=== PATIENT | female | born 1955 | race Caucasian/White ===

== ENCOUNTER → 2018-11-12 | Outpatient (CLI) | payer MEDICARE, OTHER ==
[~2018-11-12] MED LIST: ACHD5005 PO; ACHYD1T PO; ASCO-262 PO; ASP325T PO; BPR150TCR PO; CHOL10003 PO; CLIN-62 PO; CPR500T PO; CYAN10007 PO; DEXL60CA5 PO; DULO30CA3 PO; ERTAPENEM; ERTAPENEM IV; FERR240T9 PO; FERR256T PO; GBPN600T PO; HOLD METFORMIN - RECEIVED CONTRAST 20 ML VIAL IV SCH; HYDR-3729 PO; INSR1U SC; LEVO175T2 PO; LNZ600T PO; MPR22TI TOP; OMEP20CA12 PO; OMG1KC PO; OXYC-12 PO; POTA10CA43 PO; PREG100C22 PO; PREG75CA PO; PRM25T IV; PROM12.59 IV; TYGACIL IV; VITA100T6 PO; [UNRECOGNIZED DRUG - CODE] IV
[2018-11-12 11:04] LABS: BUN/CREATININE RATIO 18; CREATININE SERUM 0.74 MG/DL (0.60-1.30); GFR ESTIMATED > 60
[2018-11-12] MEDS: IOHEXOL 350 MG/ML 100 ML (OMNIPAQUE 350) VIAL IV ONE (11:29)
[2018-11-12] MEDS: NS 100 ML (IVPB) BAG IV ONE (11:30)
--- NOTE | 2018-11-12 12:47 | Diagnostic Imaging Report ---
CLINICAL INDICATION: Patient with difficulty swallowing x6 months. Enlarged parotid glands. EXAM: Axial CT scan of the neck soft tissue performed with 75 cc of Omnipaque 350 IV contrast. Coronal and sagittal reformatted images are created. COMPARISON: None. FINDINGS: There is mild prominence of the nasopharynx and oropharynx with no significant encroachment upon the airway. There is asymmetry of the aryepiglottic fold region with the left side more prominent than the right, which is nonspecific. The glottis is closed and may be related to positioning. There is enlargement of the bilateral parotid glands with multinodular appearance of fatty infiltration. There are multiple nodular areas in the parotid gland regions, which appear to have central low density within them. The largest one measures 11 mm x 8 mm in the medial aspect of the superficial portion of the left parotid gland. There is a 14 mm x 9 mm lobulated area involving the posterior aspect of left parotid gland. There are smaller nodular areas in the right parotid gland. There is also atrophy and fatty replacement of the bilateral submandibular glands. There are multiple lymph nodes on both sides of the neck. The largest measurable lymph node is 17 mm x 12 mm in the right level IIA region. The thyroid gland is unremarkable. The visualized neck vascular structures are unremarkable. There are prominent retromaxillary venous structures noted in the bilateral parotid glands and sides of the neck. There are emphysematous changes of the upper lung williamson. There are cervical spine vertebral body spurs. There are small mucus retention cysts in both maxillary sinuses. Temporal bone structures show no significant abnormality. IMPRESSION: 1: There is enlargement, multinodular, and fatty infiltration appearance of the bilateral parotid glands. The nodular areas within the parotid gland are concerning for parotid parenchyma and/or superimposed cysts with or without superimposed salivary gland tumors. The background appearance of the parotid glands may be related to chronic sialadenitis. The largest nodular lesion in the left parotid gland region measures 14 mm x 9 mm and may represent a parotid gland tumor versus lymph node. The nodular areas in the bilateral parotid glands may represent lymph nodes versus Warthin's tumors versus primary salivary gland neoplasms. If the patient has history of an immunocompromised state, then lymphoepithelial lesions may be considered. 2: Nonspecific cervical lymphadenopathy. 3: Mild asymmetry of the aryepiglottic folds with the left side more prominent than the right, which is nonspecific. There is no measurable mass seen in the region. Dictated by: Dictated on workstation # [id number]
--- NOTE | 2018-11-12 18:54 | Diagnostic Imaging Report ---
INDICATION: Dysphagia. EXAMINATION: The patient ingested effervescent crystals as well as thin and thick barium and imaging of the esophagus was performed. A total of 1 minute and 21 seconds of fluoroscopy was utilized. FINDINGS: The esophagus has a smooth contour. No mass or stricture is identified. No gastroesophageal reflux is demonstrated. There is a small hiatal hernia. IMPRESSION: Small hiatal hernia. The study is otherwise unremarkable. Dictated by: Dictated on workstation # [id number]
== END ==
LOC: RAD 10:31
PROVIDERS: ATTEND Otolaryngology Otolaryngology/Facial Plastic Surgery
DX: K44.9 Diaphragmatic hernia without obstruction or gangrene (principal); K11.1 Hypertrophy of salivary gland
CPT/HCPCS: 36415; 70491; 74220; 82565; 84520

== ENCOUNTER → 2019-01-21 | Outpatient (CLI) | payer MEDICARE, OTHER ==
[~2019-01-21] MED LIST changes: -HOLD METFORMIN - RECEIVED CONTRAST 20 ML VIAL IV SCH
--- NOTE | 2019-01-21 10:41 | NUR ---
This RN not present during procedure. Witnessed consent signing prior to procedure and discharge instructions provided to patient.
--- NOTE | 2019-01-21 11:52 | Diagnostic Imaging Report ---
Indication: Left parotid lymph node enlargement. Sonographic guidance was provided for Dr. Alvarez for left parotid lymph node biopsy. A total of 3 passes were made into the left parotid lymph node. Impression: Sonographic guidance for left parotid lymph node FNA. Dictated by: Dictated on workstation # [id number]
== END ==
LOC: RAD 10:24
PROVIDERS: ATTEND Otolaryngology Otolaryngology/Facial Plastic Surgery
DX: R59.0 Localized enlarged lymph nodes (principal)
CPT/HCPCS: 76942

== ENCOUNTER 2019-01-23 19:01 | Emergency (ER) | payer MEDICARE, OTHER ==
[~2019-01-23] VITALS: Ht 180.3 cm; Wt 113.4 kg
--- NOTE | 2019-01-23 19:38 | ED Head Injury ---
General Chief Complaint: Facial Problems Stated Complaint: FACIAL INJ Nursing Triage Note: pt hit self in fece with deck leg Source: patient Exam Limitations: no limitations History of Present Illness Date Seen by Provider: January 23, 2019 Time Seen by Provider: 19:20 Initial Comments The patient presents to ER by private conveyance with chief complaint of 40 minutes prior to arrival she was at her house in her wheelchair in the yard trying to place a pallet that had for 2 x 4 smell to it to make a table up onto her deck. As she did this one of the legs became stuck and she pulled on it hard and when it sprung out apparently the 2 x 4 struck her in the left side of her face. She has quite a bit of swelling and pain. She denies loss of consciousness nor did she fall out of her wheelchair. She is on aspirin but no other blood thinner. She denies being assaulted or feeling unsafe. There were no witnesses but she did call her son and he came over and helped her come to the ER. Allergies and Home Medications Allergies Coded Allergies: Sulfamethoxazole (Unverified Allergy, Mild, HIVES, 03/31/13) doxycycline (Unverified Allergy, Mild, HIVES, 03/31/13) trimethoprim (Unverified Allergy, Mild, HIVES, 03/31/13) vancomycin (Unverified Allergy, Mild, HIVES, 03/31/13) Home Medications Ascorbate Calcium 500 Mg Tablet, 500 MG PO DAILY, (Reported) Aspirin 325 Mg Tab, 325 MG PO DAILY Prescribed by: LANA SAMPSON on 08/23/13 1120 Bupropion Hcl 150 Mg Tabcr, 150 MG PO HS, (Reported) Cholecalciferol 1,000 Unit Tablet, 1,000 UNIT PO DAILY, (Reported) Clindamycin Hcl 150 Mg Cap, 1 EACH PO Q6HR Prescribed by: ALFREDO DENNISON on 05/22/14 1137 Cyanocobalamin 1,000 Mcg Tablet.sa, 1,000 MCG PO DAILY, (Reported) Dexlansoprazole 60 Mg Adi., 60 MG PO DAILY, (Reported) Duloxetine Hcl 30 Mg Cap, 30 MG PO DAILY, (Reported) Ferrous Gluconate 1 Tab Tablet, 65 MG PO DAILY, (Reported) Hydrocodone/Acetaminophen 1 Each Tablet, 1-2 EACH PO Q4H PRN for PAIN Prescribed by: ALFREDO DENNISON on 05/22/14 1137 Levothyroxine Sodium 175 Mcg Tablet, 175 MCG PO DAILY, (Reported) [place] 3 Polyunsat Fatty Acids 1,000 Mg Cap, 1,000 MG PO DAILY, (Reported) Potassium Chloride 10 Meq Capsule.sa, 10 MEQ PO DAILY, (Reported) Pregabalin 75 Mg Capsule, 75 MG PO BID, (Reported) Vitamin E Acid Succinate 100 Unit Tablet, 100 UNIT PO DAILY, (Reported) Patient Home Medication List Home Medication List Reviewed: Yes Review of Systems Review of Systems Constitutional: No chills, No diaphoresis Eyes: Denies Blindness, Denies Blurred Vision Ears, Nose, Mouth, Throat: denies ear pain, denies ear discharge Respiratory: No cough, No hemoptysis Cardiovascular: No chest pain, No palpitations Gastrointestinal: No abdominal pain, No nausea Past Sgfwyty-Aaefwf-Qggoiu Hx Patient Social History Alcohol Use: Denies Use Recreational Drug Use: No Smoking Status: Never a Smoker Recent Foreign Travel: No Contact w/Someone Who Travel: No Recent Infectious Disease Expo: No Immunizations Up To Date Tetanus Booster (TDap): More than 5yrs PED Vaccines UTD: Yes Date of Influenza Vaccine: Jun 02, 2013 Past Medical History Surgeries: Yes (BONE REMOVAL IN LEFT FOOT, right leg amputation, several I&D's prior to amp) Respiratory: Yes (sjogren syndrome) Cardiac: No Neurological: No Reproductive Disorders: No Gastrointestinal: Yes (constipation) Gastroesophageal Reflux Musculoskeletal: Yes Amputee, Fibromyalgia Endocrine: Yes Hypothyroidsim Cancer: No Psychosocial: No Integumentary: Yes Recent Skin Changes Blood Disorders: Yes Adverse Reaction/Blood Tranf: No Physical Exam Vital Signs Vital Signs - First Documented 01/23/19 19:23 Temp 98.5 Pulse 94 Resp 20 B/P (MAP) 154/101 (118) Pulse Ox 92 O2 Delivery Room Air Capillary Refill : Less Than 3 Seconds Height, Weight, BMI Height: 5'11.00" Weight: 250lbs. oz. 113.695709fh; BMI Method:Estimated General Appearance: WD/WN, no apparent distress HEENT: PERRL/EOMI, normal ENT inspection, TMs normal, pharynx normal, other (modest size 2-3 cm diameter hematoma over the left zygomatic arch. Negative for hemotympanum, varela sign or right sided raccoon eye.) Neck: non-tender, full range of motion, supple, normal inspection Cardiovascular: normal peripheral pulses, regular rate, rhythm Respiratory: lungs clear, normal breath sounds, no respiratory distress, no accessory muscle use Gastrointestinal: normal bowel sounds, non tender, soft Progress/Results/Core Measures Results/Orders My Orders Orders - OLLIE CUTLER Ct Head/Face/Cervical Wo (01/23/19 19:38) Vital Signs/I&O 01/23/19 19:23 Temp 98.5 Pulse 94 Resp 20 B/P (MAP) 154/101 (118) Pulse Ox 92 O2 Delivery Room Air Blood Pressure Mean: 118 Progress Progress Note : Time: 19:[address] of the head, maxillofacial, cervical spine noncontrast. Ice pack. She has declined anything for pain. Diagnostic Imaging Diagonstic Imaging: CT (noncontrast) Plain Films/CT/US/NM/MRI: c-spine, head (face) Comments [facility], [place] NAME: CEHRIE REIS [facility] REC#: [id number] PT STATUS: REG ER : 1955 PHYSICIAN: OLLIE CUTLER MD ADMIT DATE: 01/23/19/ER FS Draft Date of Exam:01/23/19 CT HEAD/FACE/CERVICAL WO PROCEDURE: CT head, face, and cervical spine without contrast. TECHNIQUE: Multiple contiguous axial images were obtained through the head, neck, and facial bones without the use of intravenous contrast. Sagittal and coronal reformations through the cervical spine and facial bones were also performed. Auto Exposure Controls were utilized during the CT exam to meet ALARA standards for radiation dose reduction. INDICATION: Head and face trauma. FINDINGS: The ventricles and sulci are within normal limits. There is no hydrocephalus. There is no midline shift. There is no intracranial mass, hemorrhage, or extra-axial fluid collection. The calvarium is intact. The nasal bones are intact. Zygomatic arches are intact. The mandibular condyles are well aligned. The mandible is intact. Pterygoid plates are intact. The frontal, ethmoid, and sphenoid sinuses are clear. There are small mucous retention cysts and/or polyps in the maxillary sinuses bilaterally. The mastoid air cells are clear. The alignment of the cervical spine is normal. The vertebral body heights are well-maintained. There is no fracture or traumatic subluxation. The odontoid is intact and the lateral masses are well aligned. There is some posterior facet arthropathy. There is some interstitial scarring in the lung apices. The prevertebral soft tissues are within normal limits. IMPRESSION: No acute intracranial abnormality No displaced facial bone fractures. There are mucous retention cysts or polyps in the maxillary sinuses bilaterally. Mild cervical spondylosis without acute fracture or traumatic subluxation. Dictated on workstation # [id number] Dict: 01/23/192015 Trans: 01/23/192021 [facility] [id number] Interpreted by: CARLTON ESCOBAR MD Electronically signed by: Reviewed: Reviewed by Me Departure Impression Primary Impression: Contusion of scalp, face, or neck, excluding eyes Additional Impression: Concussion Qualified Codes: S06.0X0A - Concussion without loss of consciousness, initial encounter Disposition: 01 HOME, SELF-CARE Condition: Stable Departure-Patient Inst. Decision time for Depature: 20:46 Referrals: YANA LEON MD (PCP/Family) Primary Care Physician Patient Instructions: Concussion, Adult (DC) Add. Discharge Instructions: Keep an ice pack every 2-4 hours on your left side your face as necessary for swelling or pain. Use Tylenol thousand milligrams and ibuprofen 800 mg every 8 hours each as necessary for pain. If you have any signs of a concussion such as headache, nausea, feeling off balance or other concerns then you should go get some sleep. If your symptoms persist you can follow-up with primary care for management of your concussion. All discharge instructions reviewed with patient and/or family. Voiced understanding. OLLIE CUTLER January 23, 2019 19:38
--- NOTE | 2019-01-23 20:23 | Diagnostic Imaging Report ---
PROCEDURE: CT head, face, and cervical spine without contrast. TECHNIQUE: Multiple contiguous axial images were obtained through the head, neck, and facial bones without the use of intravenous contrast. Sagittal and coronal reformations through the cervical spine and facial bones were also performed. Auto Exposure Controls were utilized during the CT exam to meet ALARA standards for radiation dose reduction. INDICATION: Head and face trauma. FINDINGS: The ventricles and sulci are within normal limits. There is no hydrocephalus. There is no midline shift. There is no intracranial mass, hemorrhage, or extra-axial fluid collection. The calvarium is intact. The nasal bones are intact. Zygomatic arches are intact. The mandibular condyles are well aligned. The mandible is intact. Pterygoid plates are intact. The frontal, ethmoid, and sphenoid sinuses are clear. There are small mucous retention cysts and/or polyps in the maxillary sinuses bilaterally. The mastoid air cells are clear. The alignment of the cervical spine is normal. The vertebral body heights are well-maintained. There is no fracture or traumatic subluxation. The odontoid is intact and the lateral masses are well aligned. There is some posterior facet arthropathy. There is some interstitial scarring in the lung apices. The prevertebral soft tissues are within normal limits. IMPRESSION: No acute intracranial abnormality No displaced facial bone fractures. There are mucous retention cysts or polyps in the maxillary sinuses bilaterally. Mild cervical spondylosis without acute fracture or traumatic subluxation. Dictated by: Dictated on workstation # [id number]
--- NOTE | 2019-01-23 20:46 | NUR ---
pt sitting on side of bed. denies concerns at this time. ice bag to face.
[2019-01-23 20:56] VITALS: BP 149/96
== END 2019-01-23 21:00 | disposition home or self-care (01) ==
LOC: EDUNIT# 19:01 → ER FS 19:03
DX: S06.0X0A Concussion without loss of consciousness, initial encounter (principal); S00.03XA Contusion of scalp, initial encounter; M35.00 Sjogren syndrome, unspecified; K21.9 Gastro-esophageal reflux disease without esophagitis; E03.9 Hypothyroidism, unspecified; M79.7 Fibromyalgia; Z98.890 Other specified postprocedural states; Z87.19 Personal history of other diseases of the digestive system; Z88.1 Allergy status to other antibiotic agents; Z88.2 Allergy status to sulfonamides; Z88.8 Allergy status to other drugs, medicaments and biological substances; Z79.82 Long term (current) use of aspirin; Z89.611 Acquired absence of right leg above knee; W22.09XA Striking against other stationary object, initial encounter; Y92.007 Garden or yard of unspecified non-institutional (private) residence as the place of occurrence of the external cause
CPT/HCPCS: 70450; 70486; 72125

== ENCOUNTER 2019-02-01 17:41 | Emergency (ER) | payer MEDICARE, OTHER ==
[~2019-02-01] VITALS: Ht 180.3 cm; Wt 104.3 kg
--- NOTE | 2019-02-01 18:19 | ED Lower Extremity ---
General Chief Complaint: Lower Extremity Stated Complaint: LT FOOT LAC Source: patient, RN notes reviewed Exam Limitations: no limitations History of Present Illness Date Seen by Provider: Feb 01, 2019 Time Seen by Provider: 18:10 Initial Comments Patient presents c/ c/o laceration to her left 4th toe. Not sure how she did it. Has diabetic neuropathy and little to no feeling in her foot. Tetanus status unknown. Onset: just prior to arrival Pain/Injury Location: left 4th toe (laceration) Method of Injury: unknown Modifying Factors: Improves With Other (none) Allergies and Home Medications Allergies Coded Allergies: doxycycline (Unverified Allergy, Mild, HIVES, 03/31/13) sulfamethoxazole (Unverified Allergy, Mild, HIVES, 03/31/13) trimethoprim (Unverified Allergy, Mild, HIVES, 03/31/13) vancomycin (Unverified Allergy, Mild, HIVES, 03/31/13) dextrose 5 % in water (Unverified Adverse Reaction, Unknown, 02/01/19) linezolid (Unverified Adverse Reaction, Unknown, 02/01/19) Home Medications Ascorbate Calcium 500 Mg Tablet, 500 MG PO DAILY, (Reported) Aspirin 325 Mg Tab, 325 MG PO DAILY Prescribed by: LANA SAMPSON on 08/23/13 1120 Bupropion Hcl 150 Mg Tabcr, 150 MG PO HS, (Reported) Cephalexin 500 Mg Tablet, 1,000 MG PO BID Prescribed by: ALANNA BECKMAN on 02/01/19 1845 Cholecalciferol 1,000 Unit Tablet, 1,000 UNIT PO DAILY, (Reported) Clindamycin Hcl 150 Mg Cap, 1 EACH PO Q6HR Prescribed by: ALFREDO DENNISON on 05/22/14 1137 Cyanocobalamin 1,000 Mcg Tablet.sa, 1,000 MCG PO DAILY, (Reported) Dexlansoprazole 60 Mg Adi., 60 MG PO DAILY, (Reported) Duloxetine Hcl 30 Mg Cap, 30 MG PO DAILY, (Reported) Ferrous Gluconate 1 Tab Tablet, 65 MG PO DAILY, (Reported) Hydrocodone/Acetaminophen 1 Each Tablet, 1-2 EACH PO Q4H PRN for PAIN Prescribed by: ALFREDO DENNISON on 05/22/14 1137 Levothyroxine Sodium 175 Mcg Tablet, 175 MCG PO DAILY, (Reported) [place] 3 Polyunsat Fatty Acids 1,000 Mg Cap, 1,000 MG PO DAILY, (Reported) Potassium Chloride 10 Meq Capsule.sa, 10 MEQ PO DAILY, (Reported) Pregabalin 75 Mg Capsule, 75 MG PO BID, (Reported) Vitamin E Acid Succinate 100 Unit Tablet, 100 UNIT PO DAILY, (Reported) Patient Home Medication List Home Medication List Reviewed: Yes Review of Systems Constitutional: see HPI : No Skin: see HPI, other (laceration left 4th toe) All Other Systems Reviewed Negative Unless Noted: Yes (Negative excepted noted.) Past Cxpspls-Rodmvg-Jerwie Hx Patient Social History Recent Foreign Travel: No Contact w/Someone Who Travel: No Immunizations Up To Date Tetanus Booster (TDap): More than 5yrs PED Vaccines UTD: Yes Date of Influenza Vaccine: Jun 02, 2013 Past Medical History Surgeries: Yes (BONE REMOVAL IN LEFT FOOT, right leg amputation, several I&D's prior to amp) Respiratory: Yes (sjogren syndrome) Cardiac: No Neurological: No Reproductive Disorders: No Gastrointestinal: Yes (constipation) Gastroesophageal Reflux Musculoskeletal: Yes Amputee, Fibromyalgia Endocrine: Yes Hypothyroidsim Cancer: No Psychosocial: No Integumentary: Yes Recent Skin Changes Blood Disorders: Yes Adverse Reaction/Blood Tranf: No Physical Exam Vital Signs Capillary Refill : Height, Weight, BMI Height: 5'11.00" Weight: 250lbs. oz. 113.214863ss; BMI Method:Estimated General Appearance: no apparent distress, obese Respiratory: no respiratory distress Feet: left foot abrasions/lacerations (4th toe, plantar surface. 2 cm linear, subq. Bleeding controlled. ) Neurologic/Tendon: normal motor functions, normal tendon functions, sensory deficit Neurologic/Psychiatric: alert, normal mood/affect, oriented x 3 Skin: warm/dry, other (see above under feet regarding her left 4th toe laceration.) Procedures/Interventions Wound Location: Lower Extremities (Left 4th toe) Wound Length (cm): 2 Wound's Depth, Shape: linear, sub Q Wound Explored: clean Betadine Prep?: No (Hibiclens) Suture: Ethlion Suture Size: 4-0 Number of Sutures: 4 Sterile Dressing Applied?: Yes Progress/Results/Core Measures Results/Orders My Orders Orders - ALANNA BECKMAN DO DiphtJose(Acell),Tet Adult (Boostrix (02/01/19 18:30) Wound Dressing-Ed (02/01/19 18:42) Cephalexin Capsule (Keflex Capsule) (02/01/19 18:45) Medications Given in ED Current Medications Medications Dose Ordered Sig/Romario Route Start Time Stop Time Status Last Admin Dose Admin Cephalexin HCl 1,000 mg ONCE ONCE PO 02/01/19 18:45 02/01/19 18:46 UNV 02/01/19 18:46 1,000 MG Diphtheria/ Tetanus/Acell Pertussis 0.5 ml ONCE ONCE IM 02/01/19 18:30 02/01/19 18:31 DC 02/01/19 18:42 0.5 ML Departure Impression Primary Impression: Laceration of toe of left foot Disposition: HOME, SELF-CARE Condition: Improved Departure-Patient Inst. Referrals: YANA LEON MD (PCP/Family) Primary Care Physician Patient Instructions: Laceration Repair With Stitches (DC) Add. Discharge Instructions: All discharge instructions reviewed with patient and/or family. Voiced understanding. RETURN IN 10 DAYS TO HAVE YOUR STITCHES REMOVED. RETURN SOONER IF ANY QUESTIONS, &/OR CONCERNS. Scripts Cephalexin (Cephalexin) 500 Mg Tablet 1000 MG PO BID for 7 Days, #2028 TAB 0 Refills Prov: ALANNA BECKMAN DO 02/01/19 ALANNA BECKMAN DO Feb 01, 2019 18:19
[2019-02-01] MEDS ORDERED: TETANUS,DIPTH,PERTUSS P/F (BOOSTRIX) 0.5 ML VIAL IM ONE (18:30)
[2019-02-01] MEDS ORDERED: CEPHALEXIN 250 MG (KEFLEX) CAP PO ONE ×2 (18:42→18:45)
[2019-02-01] MEDS ORDERED: CEPH500T PO (18:45)
[2019-02-01 19:10] VITALS: BP 163/93
--- NOTE | 2019-02-01 19:10 | NUR ---
AFTER COMPLETION OF DR SUTURING THE PT'S AUNT BEGAN COMPLAINING ABOUT DR'S SUTURING AND THINKING THE SUTURES APPEAR TOO LOOSE. RE-EVALUATED 4 SUTURES INTACT WITH APPROXIMATED LAC SITE. THE PT WAS EXPLAINED THE NORMAL APPEARANCE OF THESE. PT AWARE IF FOOT IS LEFT DOWN FURTHER SWELLING COULD OCCUR AND THE SUTURES COULD POP OR THE KNOTS BECOME EMBEDDED IN SKIN. PT'S SKIN CLEANSED AND AND TRIPLE ANTIBIOTIC APPLIED FOLLOWED BY A VASELINE GAUZE AND THEN 2X2 GAUZE PADDING AND WRAPPED IN KERLEX. HEMOSTASIS ACHIEVED. THE EDGES OF GAUZE ROLL TAPED ON GAUZE TO SECURE. AUNT BEGINS TO COMPLAIN WITH CONCERN IF PT ALLERGIC TO TAPE. TAPE IS NOT ON PT'S SKIN ONLY TO EDGE OF THE WRAPPING. PT QUESTIONED ABOUT A TAPE ALLERGY AND SHE DENIES. AUNT CONCERNED FOR POTENTIAL INFECTION AND RISK TO LOOSE THIS LEG. PT IS BAREFOOT ON ARRIVAL AND DIRT TO SOLES OF FEET. PT HAS MANY HEALED CUTS TO SOLES OF FEET. PT REPORTS REFUSAL TO WEAR A SHOE FOOT WILL SWEAT. PT FOOT CLEANSED BEFORE ARRIVAL OF DR TO ROOM AND CLEANSED FOOT TO SUTURE. RN CLEANSED FOOT POST SUTURING. PT'S FOOT PLACED IN A PAPER SHOE COVER. pT DISCHARGED VIA W/C TO AUNT. SPOKE WITH PT AND ASKED THAT THE BOTTOM OF FOOT BE LOOKED AT DAILY. CONCERNS OR WORRIES RETURN TO ED. REVIEWED S/SX OF INFECTION. SUTURES TO BE REMOVED IN 10 DAYS.
== END 2019-02-01 19:10 | disposition home or self-care (01) ==
LOC: EDUNIT# 17:41 → ER FS 17:42
DX: S91.115A Laceration without foreign body of left lesser toe(s) without damage to nail, initial encounter (principal); E11.40 Type 2 diabetes mellitus with diabetic neuropathy, unspecified; M35.00 Sjogren syndrome, unspecified; K21.9 Gastro-esophageal reflux disease without esophagitis; E03.9 Hypothyroidism, unspecified; M79.7 Fibromyalgia; Z23 Encounter for immunization; Z87.19 Personal history of other diseases of the digestive system; Z88.1 Allergy status to other antibiotic agents; Z88.2 Allergy status to sulfonamides; Z79.82 Long term (current) use of aspirin; Z89.611 Acquired absence of right leg above knee; Z98.890 Other specified postprocedural states; Z88.8 Allergy status to other drugs, medicaments and biological substances; X58.XXXA Exposure to other specified factors, initial encounter
CPT/HCPCS: 12001; 90471; 90715

== ENCOUNTER → 2020-01-10 | Outpatient (CLI) | payer MEDICARE, OTHER ==
[~2020-01-10] MED LIST changes: +CEPH500T PO
--- NOTE | 2020-01-12 15:23 | Diagnostic Imaging Report ---
INDICATION: Routine screening. COMPARISON is made with prior mammograms from 11/04/2017 and 09/12/2016. 2-D and 3-D bilateral screening mammography was performed with CAD. Both breasts are heterogeneously dense, limiting the sensitivity of mammography. The fibronodular parenchymal pattern appears to be stable. Numerous calcifications throughout both breasts are noted. Biopsy changes with marker clips in the left breast are again seen. No new mass is detected. No definite malignant appearing microcalcifications are identified. Axillae are unremarkable. IMPRESSION: BI-RADS Category 2 No mammographic features suspicious for malignancy are identified. ACR BI-RADS Category 2: Benign findings. Result letter will be mailed to the patient. Note: At least 10% of breast cancer is not imaged by mammography. Dictated by: Dictated on workstation # [id number]
== END ==
LOC: RAD 13:53
PROVIDERS: ATTEND Nurse Practitioner
DX: Z12.31 Encounter for screening mammogram for malignant neoplasm of breast (principal)
CPT/HCPCS: 77063; 77067

== ENCOUNTER → 2021-01-10 | Outpatient (CLI) | payer MEDICARE, OTHER ==
--- NOTE | 2021-01-11 17:27 | Diagnostic Imaging Report ---
INDICATION: Routine screening. Comparison is made to prior mammogram 01/10/2020 and 11/04/2017. 2-D and 3-D bilateral screening mammography was performed with CAD. Scattered fibroglandular densities are identified bilaterally. Nodular densities in both breasts appears stable. There are benign calcifications in both breasts which appears stable. No spiculated mass or malignant appearing microcalcifications are seen. There are marker clips in the left breast. Axillae are unremarkable. IMPRESSION: BI-RADS Category 2 No mammographic features suspicious for malignancy are identified. ACR BI-RADS Category 2: Benign findings. Result letter will be mailed to the patient. Note: At least 10% of breast cancer is not imaged by mammography. Dictated by: Dictated on workstation # [id number]
== END ==
LOC: RAD 14:26
PROVIDERS: ATTEND Nurse Practitioner
DX: Z12.31 Encounter for screening mammogram for malignant neoplasm of breast (principal)
CPT/HCPCS: 77063; 77067

== ENCOUNTER → 2021-04-16 | Outpatient (CLI) | payer MEDICARE, OTHER ==
--- NOTE | 2021-04-16 11:27 | Diagnostic Imaging Report ---
INDICATION: Wound of the great toe. COMPARISON: 05/22/2014 FINDINGS: 3 radiographic views of the left foot were obtained. Since previous exam, Efe wires have since been removed from the 2nd, 3rd, and 4th toes. Postsurgical changes of previous hallux valgus repair are again identified. No unexpected radiopaque foreign bodies are seen. Chronic deformities of the metatarsals and proximal portion of the 5th metatarsal are again noted and are largely unchanged when compared to prior exam. No new acute fracture or dislocation is seen. No osteolytic process is identified. IMPRESSION: 1. No distinct osteolytic process. Please note however that osteomyelitis cannot be excluded based on radiographs alone. Further evaluation with MRI may be of benefit. 2. Postsurgical changes of previous hallux valgus repair and chronic deformities of the foot as described above, but no new acute fracture or dislocation. Dictated by: Dictated on workstation # [id number]
== END ==
LOC: RAD FS 10:59
PROVIDERS: ATTEND Family Medicine
DX: S91.102A Unspecified open wound of left great toe without damage to nail, initial encounter (principal); Z98.890 Other specified postprocedural states; X58.XXXA Exposure to other specified factors, initial encounter
CPT/HCPCS: 73630

== ENCOUNTER → 2021-04-22 | Outpatient (CLI) | payer MEDICARE, OTHER | LOC: WOUNDCARE 12:52 | PROVIDERS: ATTEND Surgery | DX: E11.622 Type 2 diabetes mellitus with other skin ulcer (principal); E11.42 Type 2 diabetes mellitus with diabetic polyneuropathy; L97.522 Non-pressure chronic ulcer of other part of left foot with fat layer exposed; L03.116 Cellulitis of left lower limb; I70.245 Atherosclerosis of native arteries of left leg with ulceration of other part of foot; Z89.511 Acquired absence of right leg below knee | CPT/HCPCS: 99212 ==

== ENCOUNTER → 2021-04-29 | Outpatient (CLI) | payer MEDICARE, OTHER ==
--- NOTE | 2021-04-29 12:36 | Diagnostic Imaging Report ---
PROCEDURE: MR imaging left lower extremity without contrast. TECHNIQUE: Multiplanar, multisequence non contrast enhanced MR imaging of the left lower extremity was accomplished. INDICATION: Soft tissue ulcer in the medial aspect of the forefoot. COMPARISON: Left foot radiographs from 04/16/2021. FINDINGS: Bones: No T2 hyperintense bone marrow edema signal is present throughout the forefoot or visualized midfoot. No sites of T1 hypointense marrow replacement. There are surgical changes of the first metatarsal head and neck junction with the metallic pin in place. There are also surgical changes along the medial base of the first proximal phalanx. Hallux valgus is noted. Surgical changes along the lateral base of the midfoot forefoot junction are partially included in this field of view and better evaluated on recent radiographs of the foot. Soft tissues: Severe fatty atrophy of intrinsic musculature of foot is most compatible with chronic denervation injury, most frequently associated with long-standing diabetes. No T2 hyperintense fluid collection to indicate a drainable abscess. No features that would suggest tenosynovitis. IMPRESSION: 1. No osteomyelitis within the forefoot. 2. No features of soft tissue abscess or tenosynovitis. Dictated by: Dictated on workstation # [id number]
== END ==
LOC: RAD 10:15
PROVIDERS: ATTEND Surgery
DX: E11.621 Type 2 diabetes mellitus with foot ulcer (principal); E11.42 Type 2 diabetes mellitus with diabetic polyneuropathy; L97.522 Non-pressure chronic ulcer of other part of left foot with fat layer exposed; L03.116 Cellulitis of left lower limb; I70.245 Atherosclerosis of native arteries of left leg with ulceration of other part of foot; Z89.511 Acquired absence of right leg below knee

== ENCOUNTER → 2021-04-29 | Outpatient (CLI) | payer MEDICARE, OTHER | LOC: WOUNDCARE 10:44 | PROVIDERS: ATTEND Surgery | DX: E11.621 Type 2 diabetes mellitus with foot ulcer (principal); I96 Gangrene, not elsewhere classified; E11.42 Type 2 diabetes mellitus with diabetic polyneuropathy; L97.522 Non-pressure chronic ulcer of other part of left foot with fat layer exposed; I70.245 Atherosclerosis of native arteries of left leg with ulceration of other part of foot; Z89.511 Acquired absence of right leg below knee | CPT/HCPCS: 11042; G0463 ==

== ENCOUNTER → 2021-05-13 | Outpatient (CLI) | payer MEDICARE, OTHER | LOC: WOUNDCARE 14:27 | PROVIDERS: ATTEND Surgery | DX: E11.621 Type 2 diabetes mellitus with foot ulcer (principal); I96 Gangrene, not elsewhere classified; E11.42 Type 2 diabetes mellitus with diabetic polyneuropathy; L97.522 Non-pressure chronic ulcer of other part of left foot with fat layer exposed; I70.245 Atherosclerosis of native arteries of left leg with ulceration of other part of foot; Z89.511 Acquired absence of right leg below knee | CPT/HCPCS: 11042; A6197; G0463 ==

== ENCOUNTER → 2021-05-20 | Outpatient (CLI) | payer MEDICARE, OTHER | LOC: WOUNDCARE 13:18 | PROVIDERS: ATTEND Surgery | DX: E11.621 Type 2 diabetes mellitus with foot ulcer (principal); E11.42 Type 2 diabetes mellitus with diabetic polyneuropathy; L97.522 Non-pressure chronic ulcer of other part of left foot with fat layer exposed; I70.245 Atherosclerosis of native arteries of left leg with ulceration of other part of foot; E11.52 Type 2 diabetes mellitus with diabetic peripheral angiopathy with gangrene; Z89.511 Acquired absence of right leg below knee | CPT/HCPCS: 11042; A6197; G0463 ==

== ENCOUNTER → 2021-05-27 | Outpatient (CLI) | payer MEDICARE, OTHER | LOC: WOUNDCARE 12:43 | PROVIDERS: ATTEND Surgery | DX: E11.621 Type 2 diabetes mellitus with foot ulcer (principal); E11.42 Type 2 diabetes mellitus with diabetic polyneuropathy; L97.522 Non-pressure chronic ulcer of other part of left foot with fat layer exposed; I70.245 Atherosclerosis of native arteries of left leg with ulceration of other part of foot; E11.52 Type 2 diabetes mellitus with diabetic peripheral angiopathy with gangrene; Z89.511 Acquired absence of right leg below knee | CPT/HCPCS: 99212 ==

== ENCOUNTER → 2021-10-31 | Outpatient (CLI) | payer MEDICARE, OTHER | LOC: WOUNDCARE 09:11 | PROVIDERS: ATTEND Family Medicine | DX: E11.621 Type 2 diabetes mellitus with foot ulcer (principal); L97.522 Non-pressure chronic ulcer of other part of left foot with fat layer exposed; E11.43 Type 2 diabetes mellitus with diabetic autonomic (poly)neuropathy; L03.116 Cellulitis of left lower limb; E66.09 Other obesity due to excess calories; Z68.36 Body mass index [BMI] 36.0-36.9, adult | CPT/HCPCS: 11042; 87070; 87077; 87186; 87205; A6197; G0463; L4360 ==

== ENCOUNTER → 2021-11-06 | Outpatient (CLI) | payer MEDICARE, OTHER | LOC: WOUNDCARE 10:58 | PROVIDERS: ATTEND Family Medicine | DX: E11.621 Type 2 diabetes mellitus with foot ulcer (principal); L97.522 Non-pressure chronic ulcer of other part of left foot with fat layer exposed; E11.43 Type 2 diabetes mellitus with diabetic autonomic (poly)neuropathy; L03.115 Cellulitis of right lower limb; E66.09 Other obesity due to excess calories; E11.52 Type 2 diabetes mellitus with diabetic peripheral angiopathy with gangrene; Z68.36 Body mass index [BMI] 36.0-36.9, adult | CPT/HCPCS: 11042; G0463 ==

== ENCOUNTER → 2021-11-06 | Outpatient (CLI) | payer MEDICARE, OTHER ==
[~2021-11-06] MED LIST changes: +GADOTERATE 0.5 MMOL/ML (CLARISCAN) 20 ML VIAL IV ONE
--- NOTE | 2021-11-06 14:59 | Diagnostic Imaging Report ---
PROCEDURE: MRI left lower extremity with and without contrast. TECHNIQUE: Multiplanar, multisequence pre and post contrast-enhanced MRI of the left lower extremity was accomplished. INDICATION: Ulcer at the left foot great toe. COMPARISON: 04/29/2021. Radiographs from 04/16/2021. FINDINGS: An MRI marker was placed at the ulceration of the left great toe. There is underlying soft tissue edema and enhancement. There is artifact from the hardware at the adjacent 1st metatarsal and proximal phalanx. There is no evidence of osteomyelitis seen in the imaged forefoot. No acute fracture is seen. There is moderate to marked hallux valgus. There is also lateral angulation at the 2nd and 3rd MTP joints. No joint effusion is seen. There is generalized muscular atrophy which is likely neurogenic. No soft tissue rim-enhancing fluid collections are seen. Imaged flexor and extensor tendons appear normal. IMPRESSION: 1. No osteomyelitis in the left forefoot. 2. No rim-enhancing fluid collections. 3. Chronic findings including post surgical change and hallux valgus. Dictated by: Dictated on workstation # [id number]
== END ==
LOC: RAD 12:30
PROVIDERS: ATTEND Family Medicine
DX: E11.621 Type 2 diabetes mellitus with foot ulcer (principal)
CPT/HCPCS: 73720

== ENCOUNTER → 2021-11-21 | Outpatient (CLI) | payer MEDICARE, OTHER ==
[~2021-11-21] MED LIST changes: -GADOTERATE 0.5 MMOL/ML (CLARISCAN) 20 ML VIAL IV ONE
== END ==
LOC: WOUNDCARE 12:36
PROVIDERS: ATTEND Family Medicine
DX: L97.522 Non-pressure chronic ulcer of other part of left foot with fat layer exposed (principal); E11.621 Type 2 diabetes mellitus with foot ulcer; E11.43 Type 2 diabetes mellitus with diabetic autonomic (poly)neuropathy; E66.09 Other obesity due to excess calories; E11.52 Type 2 diabetes mellitus with diabetic peripheral angiopathy with gangrene; R26.89 Other abnormalities of gait and mobility
CPT/HCPCS: 11042; G0463

== ENCOUNTER 2022-02-02 17:42 | Emergency (ER) | payer MEDICARE, OTHER ==
[~2022-02-02] VITALS: Ht 180 cm; Wt 104.3 kg
--- NOTE | 2022-02-02 17:55 | ED General ---
General Stated Complaint: FALL History of Present Illness Date Seen by Provider: Feb 02, 2022 Time Seen by Provider: 17:55 Initial Comments 66-year-old female is here with complaints of tripping over the doorway ledge and she was coming into her house today around noon, and tripped and fell sustaining a contusion and swelling with pain on her left knee and lower leg. Patient is unable to ambulate or bear weight on that leg. 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 Denies head strike, LOC, visual disturbances, nausea and vomiting. Allergies and Home Medications Allergies Coded Allergies: doxycycline (Unverified Allergy, Mild, HIVES, 03/31/13) sulfamethoxazole (Unverified Allergy, Mild, HIVES, 03/31/13) trimethoprim (Unverified Allergy, Mild, HIVES, 03/31/13) vancomycin (Unverified Allergy, Mild, HIVES, 03/31/13) linezolid (Unverified Adverse Reaction, Unknown, 02/01/19) Patient Home Medication List Home Medication List Reviewed: Yes Ascorbate Calcium (Vitamin C) 500 Mg Tablet, 500 MG PO DAILY, (Reported) Entered as Reported by: DENNISE KHALIL on 03/02/13 1510 Aspirin (Aspirin 325 Mg Tab) 325 Mg Tab, 325 MG PO DAILY Prescribed by: LANA SAMPSON on 08/23/13 1120 Bupropion Hcl (Wellbutrin Sr 12 Hr Tablet) 150 Mg Tabcr, 150 MG PO HS, (Reported) Entered as Reported by: DENNISE KHALIL on 03/02/13 1510 Cephalexin (Cephalexin) 500 Mg Tablet, 1,000 MG PO BID Prescribed by: ALANNA BECKMAN on 02/01/19 1845 Cholecalciferol (Vitamin D) 1,000 Unit Tablet, 1,000 UNIT PO DAILY, (Reported) Entered as Reported by: MERY OCONNELL on 05/17/14 1214 Clindamycin Hcl (Cleocin Cap) 150 Mg Cap, 1 EACH PO Q6HR Prescribed by: ALFREDO DENNISON on 05/22/14 1137 Cyanocobalamin (Vitamin B12) 1,000 Mcg Tablet.sa, 1,000 MCG PO DAILY, (Reported) Entered as Reported by: DENNISE KHALIL on 03/02/13 1510 Dexlansoprazole (Dexilant) 60 Mg Adi., 60 MG PO DAILY, (Reported) Entered as Reported by: MERY OCONNELL on 05/17/14 1215 Duloxetine Hcl (Cymbalta Capsule) 30 Mg Cap, 30 MG PO DAILY, (Reported) Entered as Reported by: DENNISE KHALIL on 03/02/13 1510 Ferrous Gluconate (Iron) 1 Tab Tablet, 65 MG PO DAILY, (Reported) Entered as Reported by: MERY OCONNELL on 05/17/14 1210 Hydrocodone/Acetaminophen (Lortab 5-325 mg Tablet) 1 Each Tablet, 1-2 EACH PO Q4H PRN for PAIN Prescribed by: ALFREDO DENNISON on 05/22/14 1137 Levothyroxine Sodium (Synthroid) 175 Mcg Tablet, 175 MCG PO DAILY, (Reported) Entered as Reported by: DENNISE KHALIL on 03/02/13 1510 [place] 3 Polyunsat Fatty Acids (Fish Oil) 1,000 Mg Cap, 1,000 MG PO DAILY, (Reported) Entered as Reported by: DENNISE KHALIL on 03/02/13 1510 Potassium Chloride (Potassium Chloride) 10 Meq Capsule.sa, 10 MEQ PO DAILY, (Reported) Entered as Reported by: MERY OCONNELL on 05/17/14 1214 Pregabalin (Lyrica) 75 Mg Capsule, 75 MG PO BID, (Reported) Entered as Reported by: MERY OCONNELL on 05/17/14 1210 Vitamin E Acid Succinate (Vitamin E) 100 Unit Tablet, 100 UNIT PO DAILY, (Reported) Entered as Reported by: DENNISE KHALIL on 03/02/13 1510 Review of Systems Review of Systems Constitutional: no symptoms reported EENTM: no symptoms reported Respiratory: no symptoms reported Cardiovascular: no symptoms reported Gastrointestinal: no symptoms reported Genitourinary: no symptoms reported Musculoskeletal: joint pain, joint swelling, muscle pain Skin: no symptoms reported Psychiatric/Neurological: No Symptoms Reported Hematologic/Lymphatic: No Symptoms Reported Immunological/Allergic: no symptoms reported Past Lhwnuia-Xzdfgh-Grohqs Hx Immunizations Up To Date Tetanus Booster (TDap): More than 5yrs PED Vaccines UTD: Yes Seasonal Allergies Seasonal Allergies: No Past Medical History Surgeries: Yes (bone removal in L foot, right leg amputation, several I&D's prior to amp) Respiratory: Yes (sjogren syndrome) Cardiac: No Neurological: No Reproductive Disorders: No Genitourinary: No Gastrointestinal: Yes (constipation) Gastroesophageal Reflux Musculoskeletal: Yes Amputee, Fibromyalgia Endocrine: Yes Hypothyroidsim HEENT: No Cancer: No Psychosocial: No Integumentary: Yes Recent Skin Changes Blood Disorders: Yes Adverse Reaction/Blood Tranf: No Physical Exam Vital Signs Vital Signs - First Documented 02/02/22 17:50 Temp 36.1 Pulse 87 Resp 19 B/P (MAP) 133/78 (96) O2 Delivery Room Air Capillary Refill : Height, Weight, BMI Height: 5'11.00" Weight: 230lbs. oz. [id number]; BMI Method:Stated General Appearance: No Apparent Distress HEENT: PERRL/EOMI Neck: Limited Range of Motion (Due to pain and swelling), Tender Midline (Contusion and ecchymosis on the upper tib-fib area. Redness and swelling around the knee of the left knee. N/V bundle intact) Respiratory: Chest Non Tender Back: Normal Inspection, No Vertebral Tenderness Neurologic/Psychiatric: Alert, Oriented x3, No Motor/Sensory Deficits, Normal Mood/Affect Procedures/Interventions Suture Size: 4-0 Progress/Results/Core Measures Suspected Sepsis SIRS Temperature: Pulse: Respiratory Rate: Blood Pressure / Mean: Results/Orders My Orders Orders - VALENTINO FOSTER MD Knee 3 View Left (02/02/22 18:12) Tibia Fibula 2 View Left (02/02/22 18:12) Vital Signs/I&O 02/02/22 17:50 Temp 36.1 Pulse 87 Resp 19 B/P (MAP) 133/78 (96) O2 Delivery Room Air Capillary Refill : Progress Note : Progress Note 1. LEFT KNEE/ LOWER LEG CONTUSION: - XR LEFT KNEE/ LEFT TIB-FIB: No fracture or dislocation - Ice/ Ibuprofen - Ortho follow up within one week -Advised that occasionally fractures may only appear on x-ray a week or so after the initial injury, and if pain and symptoms persist, repeat x-ray will be needed in 7 to 10 days. -Patient will be using wheelchair at home to get around. Diagnostic Imaging Diagonstic Imaging: Xray Plain Films/CT/US/NM/MRI: leg, knee Departure Impression Primary Impression: Contusion of left lower leg, initial encounter Disposition: 01 HOME, SELF-CARE Condition: Stable Departure-Patient Inst. Referrals: SELF,ANNA DUFFY (PCP) Primary Care Physician LINNETTE MAXWELL MD Patient Instructions: Contusion (DC) Add. Discharge Instructions: - Ice/ Ibuprofen - Ortho follow up within one week, call Dr. Maxwell's office for appointment -Advised that occasionally fractures may only appear on x-ray a week or so after the initial injury, and if pain and symptoms persist, repeat x-ray will be needed in 7 to 10 days. VALENTINO FOSTER MD Feb 02, 2022 17:55
--- NOTE | 2022-02-02 18:33 | Diagnostic Imaging Report ---
INDICATION: Left knee pain. Three views of the left knee show no fracture, dislocation or other acute abnormalities. There are small osteophytes in the medial compartment of the knee. IMPRESSION: Mild degenerative changes. No fracture or acute abnormality is seen. Dictated by: Dictated on workstation # [id number]
--- NOTE | 2022-02-02 18:33 | Diagnostic Imaging Report ---
INDICATION: Left lower leg pain. AP and lateral views of the left tibia and fibula show no fracture or dislocation. IMPRESSION: Negative left tibia and fibula. Dictated by: Dictated on workstation # [id number]
[2022-02-02 19:21] VITALS: BP 133/78
== END 2022-02-02 19:23 | disposition home or self-care (01) ==
LOC: EDUNIT# 17:42 → ER FS 17:44
DX: S80.12XA Contusion of left lower leg, initial encounter (principal); Z89.511 Acquired absence of right leg below knee; W18.09XA Striking against other object with subsequent fall, initial encounter
CPT/HCPCS: 73562; 73590

== ENCOUNTER → 2022-06-13 | Outpatient (CLI) | payer MEDICARE, OTHER ==
[~2022-06-13] MED LIST changes: +BARIUM for suspension 96% w/w (Vanilla Silq Medium Density) PO ONE; +BARIUM for suspension 98% w/w (Vanilla Silq High Density) PO ONE
--- NOTE | 2022-06-13 12:02 | Diagnostic Imaging Report ---
Indication: Difficulty swallowing, increasing over the last few months. The patient ingested effervescent crystals as well as thin and thick barium and imaging of the esophagus was performed in multiple obliquities. 0.5 minutes of fluoroscopic time was utilized. The esophagus has a smooth contour. No mass or stricture is identified. No hiatal hernia or gastroesophageal reflux was demonstrated. IMPRESSION: Unremarkable barium swallow study. Dictated by: Dictated on workstation # [id number]
== END ==
LOC: RAD 10:15
PROVIDERS: ATTEND Otolaryngology Otolaryngology/Facial Plastic Surgery
DX: R13.10 Dysphagia, unspecified (principal)
CPT/HCPCS: 74220